=== PATIENT | male | born 1965 | race Caucasian/White ===

== ENCOUNTER 2016-12-15 02:08 | Inpatient (IN) | payer MEDICAID ==
[~2016-12-15] VITALS: Ht 193 cm; Wt 99.5 kg
[~2016-12-15 02:08] MED LIST: QUET100T PO; SERT100T12 PO
[2016-12-15 04:58] LABS: BASOPHILS % (AUTO) 0.5 % (0.0-2.0); EOSINOPHILS % (AUTO) 0.9 % (1.0-6.0); HEMATOCRIT 42.1 % (41-53); LYMPHOCYTES # (AUTO) 2.8 K/uL (1.0-4.8); LYMPHOCYTES % (AUTO) 28.9 % (22.0-44.0); MEAN CORPUSCULAR HEMOGLOBIN 30.4 pg (26.0-34.0); MEAN CORPUSCULAR HGB CONC 33.3 G/dL (31.0-37.0); MEAN CORPUSCULAR VOLUME 91 fL (80-100); MONOCYTES % (AUTO) 10.5 % (2.0-9.0); NEUTROPHILS # (AUTO) 5.8 K/uL (1.8-7.7); NEUTROPHILS % (AUTO) 59.2 % (40.0-70.0); PLATELET COUNT (AUTO) 309 K/uL (150-450); RED BLOOD CELL COUNT(AUTO) 4.61 MIL/uL (4.50-5.90); RED CELL DISTRIBUTION WIDTH 15.2 % (11.5-14.5); WHITE BLOOD COUNT (AUTO) 9.8 K/uL (4.5-11.0)
[2016-12-15 05:13] LABS: ANION GAP 11 mmol/L (8-16); CALCIUM, TOTAL 8.6 mg/dL (8.8-10.5); CARBON DIOXIDE 24 mmol/L (22-29); CHLORIDE 106 mmol/L (98-107); CREATININE 0.76 mg/dL (0.60-1.30); GLOMERULAR FILTR. RATE CALC > 60 mL/min (>60); POTASSIUM 3.9 mmol/L (3.5-5.1); SODIUM SERUM 141 mmol/L (136-145); UREA NITROGEN, BLOOD 20 mg/dL (7-18)
[2016-12-15 05:18] LABS: ALANINE AMINOTRANSFERASE 99 U/L (12-78); ALBUMIN 3.4 g/dL (3.4-5.0); ASPARTATE AMINOTRANSFERASE 82 U/L (15-37); BILIRUBIN,TOTAL 0.3 mg/dL (0.1-1.0); TOTAL PROTEIN, SERUM 8.2 g/dL (6.4-8.2)
[2016-12-15] MEDS ORDERED: ZOLPIDEM TARTRATE 10 MG TABLET PO PRN (06:00)
[2016-12-15] MEDS ORDERED: HALOPERIDOL 5 MG TABLET PO PRN (06:00)
[2016-12-15 06:12] LABS: APPEARANCE,URINE TURBID (CLEAR); GLUCOSE, URINE (UA) NEGATIVE (NEGATIVE); KETONES,URINE NEGATIVE (NEGATIVE); LEUKOCYTE ESTERASE ,URINE NEGATIVE (NEGATIVE); OCCULT BLOOD,URINE NEGATIVE (NEGATIVE); PROTEIN,URINE NEGATIVE (NEGATIVE)
[2016-12-15 06:25] LABS: ADD UA MICROSCOPIC YES
[2016-12-15 06:37] LABS: RBC,URINE 0-2 /HPF (0-2); SQUAMOUS EPITHELIAL CELL,UR Rare /LPF (None Seen); WBC,URINE 0-2 /HPF (0-5)
[2016-12-15 06:38] LABS: URIC ACID CRYSTALS,URINE Moderate /LPF (None Seen)
[2016-12-15] MEDS: LORazepam 2 MG TABLET PO PRN (11:44)
[2016-12-15 12:27] VITALS: BP 152/96
[2016-12-15 12:36] VITALS: BP 152/96
[2016-12-15 16:30] VITALS: BP 146/91
[2016-12-15] MEDS ORDERED: CYANOCOBALAMIN 1,000 MCG/ML VIAL IM ONE (17:15)
[2016-12-15] MEDS ORDERED: CloNIDine HCL 0.1 MG TABLET PO PRN (17:30)
[2016-12-16] MEDS: LORazepam 2 MG TABLET PO PRN (06:11)
[2016-12-16 07:35] LABS: ALANINE AMINOTRANSFERASE 139 U/L (12-78); ALBUMIN 3.5 g/dL (3.4-5.0); ANION GAP 10 mmol/L (8-16); ASPARTATE AMINOTRANSFERASE 137 U/L (15-37); BILIRUBIN,TOTAL 0.8 mg/dL (0.1-1.0); CALCIUM, TOTAL 9.3 mg/dL (8.8-10.5); CARBON DIOXIDE 28 mmol/L (22-29); CHLORIDE 102 mmol/L (98-107); CHOL/HDL RATIO 5.8 (4.2-7.3); CREATINE KINASE MB 1.8 ng/mL (0-5); CREATINE KINASE, TOTAL 226 U/L (39-308); CREATININE 0.66 mg/dL (0.60-1.30); GLOMERULAR FILTR. RATE CALC > 60 mL/min (>60); POTASSIUM 4.1 mmol/L (3.5-5.1); SODIUM SERUM 140 mmol/L (136-145); UREA NITROGEN, BLOOD 16 mg/dL (7-18)
[2016-12-16 08:05] VITALS: BP 161/93
[2016-12-16 08:07] LABS: HEMOGLOBIN A1C 5.5 % (4.5-6.2)
[2016-12-16] MEDS: THIAMINE HCL 100 MG TABLET PO SCH (09:15)
[2016-12-16] MEDS: FOLIC ACID 1 MG TABLET PO SCH (09:15)
[2016-12-16 11:13] VITALS: BP 136/88
[2016-12-16 14:23] VITALS: BP 151/72
[2016-12-16] MEDS ORDERED: CYANOCOBALAMIN 1,000 MCG/ML VIAL IM ONE (14:30)
[2016-12-16] MEDS ORDERED: LORazepam 2 MG TABLET PO PRN ×2 (14:30→14:32)
[2016-12-16 16:23] VITALS: BP 104/67
[2016-12-16] MEDS: LORazepam 2 MG TABLET PO SCH ×2 (16:52→21:08)
[2016-12-16 17:23] VITALS: BP_SYST 14; BP_SYST 140; BP_DIAS 89
[2016-12-16] MEDS ORDERED: IBUPROFEN 600 MG TABLET PO PRN (19:00)
[2016-12-16] MEDS ORDERED: ACETAMINOPHEN 325 MG TABLET PO PRN (19:00)
[2016-12-17] VITALS (7 sets, daily range): BP systolic 112–149; BP diastolic 81–90
[2016-12-17] MEDS: FOLIC ACID 1 MG TABLET PO SCH (09:11)
[2016-12-17] MEDS: LORazepam 2 MG TABLET PO SCH ×4 (09:11→21:45)
[2016-12-17] MEDS: MULTIVITAMINS WITH MINERALS, THERAPEUTIC TABLET PO SCH (09:11)
[2016-12-17] MEDS: THIAMINE HCL 100 MG TABLET PO SCH (09:11)
[2016-12-17] MEDS: SERTRALINE HCL 100 MG TABLET PO SCH (09:12)
[2016-12-17 12:17] LABS: HEPATITIS Bs ANTIGEN SCREEN P Negative (Negative); HEPATITIS C AB SCREEN >11.0 s/co ratio (0.0-0.9)
[2016-12-18 03:13] VITALS: BP 133/80
[2016-12-18] MEDS ORDERED: LORazepam 1 MG TABLET PO PRN (07:00)
[2016-12-18 08:45] VITALS: BP 130/64
[2016-12-18] MEDS: LORazepam 1 MG TABLET PO SCH ×4 (09:00→20:29)
[2016-12-18] MEDS: FOLIC ACID 1 MG TABLET PO SCH (09:01)
[2016-12-18] MEDS: MULTIVITAMINS WITH MINERALS, THERAPEUTIC TABLET PO SCH (09:01)
[2016-12-18] MEDS: SERTRALINE HCL 100 MG TABLET PO SCH (09:01)
[2016-12-18] MEDS: THIAMINE HCL 100 MG TABLET PO SCH (09:01)
[2016-12-18] MEDS ORDERED: MAGNESIUM OXIDE 400 MG TABLET PO ONE (10:30)
[2016-12-18] MEDS: MAGNESIUM OXIDE 400 MG TABLET PO SCH ×2 (10:53→16:01)
[2016-12-18 17:56] VITALS: BP 154/95
[2016-12-18 20:34] VITALS: BP 136/76
[2016-12-19 06:28] VITALS: BP 140/90
[2016-12-19] MEDS ORDERED: LORazepam 1 MG TABLET PO PRN (07:00)
[2016-12-19 08:30] VITALS: BP 148/96
[2016-12-19] MEDS: THIAMINE HCL 100 MG TABLET PO SCH (08:52)
[2016-12-19] MEDS: FOLIC ACID 1 MG TABLET PO SCH (08:52)
[2016-12-19] MEDS: MULTIVITAMINS WITH MINERALS, THERAPEUTIC TABLET PO SCH (08:52)
[2016-12-19] MEDS: SERTRALINE HCL 100 MG TABLET PO SCH (08:52)
== END 2016-12-19 09:15 | disposition home or self-care (01) | DRG 751 ==
LOC: EMS 02:10 → 3EI 07:18
DX: F33.2 Major depressive disorder, recurrent severe without psychotic features (principal); K70.30 Alcoholic cirrhosis of liver without ascites; R45.851 Suicidal ideations; F10.229 Alcohol dependence with intoxication, unspecified; F17.210 Nicotine dependence, cigarettes, uncomplicated; F12.90 Cannabis use, unspecified, uncomplicated; F20.9 Schizophrenia, unspecified; Z53.29 Procedure and treatment not carried out because of patient's decision for other reasons; K76.9 Liver disease, unspecified; K70.10 Alcoholic hepatitis without ascites; Z91.5 Personal history of self-harm; Z59.0 Homelessness
CPT/HCPCS: 80074; 82306; 82607; 82746; 83036; 83735; 84439; 86592; 99285; G0480; J3420